=== PATIENT | female | born 1935 | race Caucasian/White ===

== ENCOUNTER 2017-01-13 07:41 | Day surgery (SDC) | payer MEDICARE, BC ==
[~2017-01-13] VITALS: Ht 167.6 cm; Wt 72.7 kg
[2017-01-13] VITALS (8 sets, daily range): BP systolic 129–163; BP diastolic 49–69; PULSE 60–63; RESP 14–18; TEMP 97.6; O2SAT 93–97
[2017-01-13] MEDS ORDERED: TOPR50TA PO (08:30)
[2017-01-13] MEDS ORDERED: FISHCAP4 PO (08:30)
[2017-01-13] MEDS ORDERED: PRED50 PO (08:30)
[2017-01-13] MEDS ORDERED: HYDR-3516 PO (08:30)
[2017-01-13] MEDS ORDERED: COLA100C (08:30)
[2017-01-13] MEDS ORDERED: LOSA50TA PO (08:30)
[2017-01-13] MEDS ORDERED: COQ150CA (08:30)
[2017-01-13] MEDS ORDERED: DIPH25TA2 PO (08:30)
[2017-01-13] MEDS ORDERED: VANCOMYCIN HCL 1000 MG ON-CALL/NS 250 ML IV SCH ×2 (08:45)
[2017-01-13 08:58] LABS: AUTOMATED NEUTROPHIL # 5.9 TH/MM3 (1.8-7.7); BASOPHIL % 0.4 % (0.0-2.0); EOSINOPHIL % 0.1 % (0.0-4.0); HEMATOCRIT 40.3 % (35.0-46.0); HEMO FLAGS DIFF FINAL; LYMPH % 15.5 % (9.0-44.0); LYMPHOCYTE # 1.2 TH/MM3 (1.0-4.8); MEAN CELL VOLUME 89.4 FL (80.0-100.0); MEAN CORPUSCULAR HEMOGLOBIN 29.6 PG (27.0-34.0); MEAN CORPUSCULAR HGB CONC 33.1 % (32.0-36.0); MONO % 6.9 % (0.0-8.0); NEUT % 77.1 % (16.0-70.0); PLATELET COUNT 307 TH/MM3 (150-450); RED CELL DISTRIBUTION WIDTH 13.3 % (11.6-17.2); WHITE BLOOD COUNT 7.6 TH/MM3 (4.0-11.0)
[2017-01-13] MEDS ORDERED: SODIUM CHLOR 0.9% 1000 ML INJ 1,000 ML IV SCH (09:00)
[2017-01-13 09:08] LABS: APTT (PATIENT) 26.8 SEC (24.3-30.1); INTERNATIONAL NORMALIZED RATIO 0.9 RATIO; PROTHROMBIN TIME - PATIENT 10.3 SEC (9.8-11.6)
[2017-01-13 09:25] LABS: BICARBONATE 27.1 MEQ/L (21.0-32.0); POTASSIUM 3.9 MEQ/L (3.5-5.1)
[2017-01-13] MEDS ORDERED: MIDAZOLAM HCL 5 MG/5 ML VIAL ONE (11:08)
[2017-01-13] MEDS ORDERED: BUPIVACAINE HCL PF 0.75% 30 ML VIAL ONE (11:32)
--- NOTE | 2017-01-13 12:02 | PD.RAD ---
Post Procedure Progress Note Pre Procedure Diagnosis: (1) Back pain (2) T12 compression fracture Post Procedure Diagnosis: (1) Back pain (2) T12 compression fracture Procedure Date: Jan 13, 2017 Supervising Radiologist: Jose Antonio Betts Estimated blood loss: None Anesthesia: Local, Conscious Sedation Plan of Activity Patient to Unit: [facility] Patient Condition: Good Additional Comments: Successful Kyphoplasty at T12. Unilateral approach from the right pedicle. No complication evident on fluoroscopy. Adequate spread of cement across the vertebral body. Full dictated report to follow See PACS Report for procedural detail/treatment Jose Antonio Betts MD Jan 13, 2017 12:02
--- NOTE | 2017-01-13 13:58 | RADRPT ---
EXAM DATE/TIME: 01/13/2017 11:15 [facility] COMPARISON: No previous studies available for comparison. INDICATIONS : Patient with T12 compression fracture in need of kyphoplasty. MEDICAL HISTORY : HTN, GERD, Migraines, Cardiomyopathy SURGICAL HISTORY : Knee replacement, Hysterectomy ENCOUNTER: Initial ACUITY: 2 weeks PAIN SCORE: 0/10 FLUORO TIME: 15.2 minutes IMAGE SERIES: 2 SEDATION TIME: 30 minutes LEVEL: T12 MEDICATION(S): 1.) 3 mg midazolam (Versed) IV 2.) 200 mcg fentanyl (Sublimaze) IV Prophylactic antibiotics were administered with appropriate pre-procedure timing. Vancomycin within 2 hrs of procedure, Ancef (or alternative) within 1 hr of procedure. DEVICE: 1. 4 cc AVAMax bone cement PROCEDURE : 1. Fluoroscopically-guided kyphoplasty. 2. Conscious sedation with continuous EKG and oximetry monitoring. The risks, benefits and alternatives to the procedure were explained and verbal and written consent w as obtained. The site was prepped in sterile fashion. Full sterile technique was used, including ca p, mask, sterile gloves and gown and a large sterile sheet. Hand hygiene and 2% chlorhexidine and/or betadine/alcohol prep was utilized per protocol for cutaneous antisepsis. The skin and subcutaneous tissues were infiltrated with local anesthetic solution. The T12 pedicle on the left was identified using fluoroscopic guidance. The cannula was advanced thro ugh the left pedicle and into the vertebral body under direct fluoroscopic visualization. A curved ne edle was advanced through the cannula and Kyphoplasty was performed with cavity creation as above. 4 cc of cement volume was placed. Post procedure images demonstrate cement confined to the vertebral b magdaleno. Conscious sedation was performed with the prescribed dosages and duration as above in the presence of an independent trained radiology nurse to assist in the monitoring of the patient. EKG and oximetry remained stable throughout the procedure. The patient tolerated the procedure well and there were n o complications. The patient was sent to post anesthesia recovery in stable condition. CONCLUSION: Uncomplicated kyphoplasty as above. Jose Antonio Betts MD on January 13, 2017 at 13:55 Board Certified Radiologist. This report was verified electronically.
== END 2017-01-13 15:30 | disposition home or self-care (01) ==
LOC: HROP 07:41 → HRIP 07:44 → HROP 15:30
PROVIDERS: ATTEND Internal Medicine
DX: S22.080A Wedge compression fracture of T11-T12 vertebra, initial encounter for closed fracture (principal); I42.9 Cardiomyopathy, unspecified; I10 Essential (primary) hypertension; K21.9 Gastro-esophageal reflux disease without esophagitis
CPT/HCPCS: 22513; 80048; 85025; 85610; 85730; 99152; 99153; J2250; J3010; J3370; J7030; J7050

== ENCOUNTER 2017-01-20 13:13 | Day surgery (SDC) | payer MEDICARE, BC ==
[~2017-01-20 13:13] MED LIST: COLA100C; COQ150CA; DIPH25TA2 PO; FISHCAP4 PO; HYDR-3516 PO; LOSA50TA PO; PRED50 PO; TOPR50TA PO
[2017-01-20 14:39] VITALS: BP 168/78; PULSE 61; RESP 20; TEMP 98; O2SAT 98
--- NOTE | 2017-01-20 16:47 | RADRPT ---
EXAM DATE/TIME: 01/20/2017 15:00 [facility] COMPARISON : INDICATIONS : Follow up Kyphoplasty OBJECTIVE: Temperature: 98.0 Heart Rate: 61 Blood Pressure: 168/78 Respiratory: 20 Oximetry: 98 PNEUMONIA VACCINE: YES HISTORY OF PRESENT ILLNESS: The patient underwent kyphoplasty of T12-01/13/17. Subjective: The patient states per initial pain has completely resolved. She is no longer taking any pain medicat ion. She does complain of a small amount of pain significantly lower approximate the level of L5. Objective: The previous kyphoplasty site is completely healed. The patient's pain is quite low over the upper sa sindy. PLAN: The patient was advised minmual the pain she is now experiencing was likely secondary to the bed rest post procedure and this should begin to resolve with activity. She was advised to contact us if this did not improve. TIME SPENT: 20 minutes Jose Antonio Betts MD on January 20, 2017 at 16:39 Board Certified Radiologist. This report was verified electronically.
== END 2017-01-20 15:20 | disposition home or self-care (01) ==
LOC: HROP 13:13 → HRIP 13:14 → HROP 15:20
PROVIDERS: ATTEND Radiology Body Imaging
DX: Z09 Encounter for follow-up examination after completed treatment for conditions other than malignant neoplasm (principal)
CPT/HCPCS: 99211; G0463